=== PATIENT | male | born 1965 | race Caucasian/White ===

== ENCOUNTER 2022-08-08 20:24 | Emergency (ER) | payer MEDICAID ==
[~2022-08-08] VITALS: Ht 190.5 cm; Wt 88.5 kg
[2022-08-08 20:29] VITALS: BP_SYST 129
--- NOTE | 2022-08-08 20:37 | NUR ---
PATIENT PRESENTS WITH DOG BITE TO RIGHT FOREARM, LEFT ELBOW, LEFT HAND, 10/10 PAIN, NO ACTIVE BLEEDING, PATIENT BIT TODAY AT 1999, VITALS ARE STABLE
--- NOTE | 2022-08-08 20:44 | NUR ---
PATIENT PLACED IN ED BED 3 AT THIS TIME
--- NOTE | 2022-08-08 20:47 | NUR ---
Note undone in EDM - 08/08/22 at 2049 by [email or web address] Patient given written and verbal discharge instructions and verbalizes understanding. ER discussed with patient the results and treatment provided. Patient in stable condition. ID arm band removed. INFORMED TO FOLLOW UP WITH PCP FOR PERSISTENT SYMPTOMS Rx of given. Patient educated on pain management and to follow up with PMD. Pain Scale 0/10 Opportunity for questions provided and answered. Medication side effect fact sheet provided.
[2022-08-08] MEDS ORDERED: AMOXICILLIN/POTASSIUM CLAV 875 MG TABLET PO ONE (21:00)
[2022-08-08] MEDS ORDERED: ACETAMINOPHEN 500 MG TABLET PO ONE (21:00)
[2022-08-08] MEDS ORDERED: KETOROLAC TROMETHAMINE 30 MG VIAL IM ONE (21:00)
--- NOTE | 2022-08-08 21:00 | NUR ---
FIRST CONTACT WITH PT. ASSESSMENT COMPLETED. AWAITING MD DIOP AND ORDERS
[2022-08-08] MEDS ORDERED: BACITRACIN 1 GM OINT TP ONE (21:30)
--- NOTE | 2022-08-08 22:30 | NUR ---
MD AT BEDSIDE TO DISCUSS FINDINGS AND DISCHARGE PLANS.
[2022-08-08] MEDS ORDERED: IBUP-1969 PO (22:35)
[2022-08-08] MEDS ORDERED: AUG875 PO (22:35)
[2022-08-08] MEDS ORDERED: BACI15OI13 TP (22:36)
--- NOTE | 2022-08-08 22:53 | NUR ---
Patient given written and verbal discharge instructions and verbalizes understanding. ER MD HERNANDEZ discussed with patient the results and treatment provided. Patient in stable condition. ID arm band removed. IV catheter removed intact and dressing applied, no active bleeding. Rx of AUGMENTEN AND IBUPROPHEN given. Patient educated on pain management and to follow up with PMD. Pain Scale . Opportunity for questions provided and answered. Medication side effect fact sheet provided.
[2022-08-08 22:57] VITALS: BP_SYST 132
== END 2022-08-08 22:57 | disposition home or self-care (01) ==
LOC: SED 20:24
DX: S51.831A Puncture wound without foreign body of right forearm, initial encounter (principal); S51.032A Puncture wound without foreign body of left elbow, initial encounter; Z79.899 Other long term (current) drug therapy; W54.0XXA Bitten by dog, initial encounter; Y93.89 Activity, other specified; Y92.89 Other specified places as the place of occurrence of the external cause; Y99.8 Other external cause status
CPT/HCPCS: 99284; 73080; 73090; 96372; J1885